=== PATIENT | female | born 1990 | race Caucasian/White ===

== ENCOUNTER → 2021-10-31 | Outpatient (CLI) | payer OTHER, BC | END | disposition home or self-care (01) | LOC: NPLAB 13:19 | PROVIDERS: ATTEND Nurse Practitioner Family | DX: Z11.52 Encounter for screening for COVID-19 (principal); Z20.822 Contact with and (suspected) exposure to COVID-19 | CPT/HCPCS: 87633 ==

== ENCOUNTER → 2022-11-16 | Outpatient (CLI) | payer OTHER, BC ==
[2022-11-16 10:20] LABS: BASOPHIL # 0.1 10^3/uL (0.0-0.1); BASOPHIL % 0.9 % (0.0-0.2); EOSINOPHIL # 0.1 10^3/uL (0.0-0.2); EOSINOPHIL % 2.2 % (0.0-5.0); LYMPHOCYTES # 1.81 10^3/uL1 (1.0-4.8); LYMPHOCYTES % 28.4 % (24.0-44.0); MEAN CORP HGB 28.7 pg (26-34); MONOCYTES # 0.6 10^3/uL (0.3-0.8); MONOCYTES % 8.6 % (5.0-12.0); NEUTROPHIL # 3.8 10^3/uL (1.8-7.7); NEUTROPHILS % 59.9 % (41.0-85.0); PLATELET COUNT 349 10^3/uL (150-400); RED CELL DISTRIBUTION WIDTH 13.7 % (11.5-14.5)
[2022-11-16 10:36] LABS: CARBON DIOXIDE 28.5 mmol/L (20.0-32)
== END | disposition home or self-care (01) ==
LOC: NPLAB 09:31
PROVIDERS: ATTEND Nurse Practitioner Adult Health
DX: I10 Essential (primary) hypertension (principal); D68.9 Coagulation defect, unspecified; E66.01 Morbid (severe) obesity due to excess calories; F43.23 Adjustment disorder with mixed anxiety and depressed mood
CPT/HCPCS: 36415; 80053; 80061; 84439; 84443; 85025

== ENCOUNTER → 2024-11-14 | Outpatient (CLI) | payer BC | END | disposition home or self-care (01) | LOC: RAD 13:11 | PROVIDERS: ATTEND Student in an Organized Health Care Education/Training Program | DX: R07.89 Other chest pain (principal) | CPT/HCPCS: 71046 ==

== ENCOUNTER → 2025-04-01 | Outpatient (CLI) | payer BC | END | disposition home or self-care (01) | LOC: RAD 15:40 | PROVIDERS: ATTEND Student in an Organized Health Care Education/Training Program | DX: M25.561 Pain in right knee (principal) | CPT/HCPCS: 73562-RT ==

== ENCOUNTER → 2025-04-08 | Outpatient (CLI) | payer BC | END | disposition home or self-care (01) | LOC: RAD 15:27 | PROVIDERS: ATTEND Student in an Organized Health Care Education/Training Program | DX: S83.521A Sprain of posterior cruciate ligament of right knee, initial encounter (principal); M25.461 Effusion, right knee; M25.561 Pain in right knee; X58.XXXA Exposure to other specified factors, initial encounter; Y93.89 Activity, other specified; Y92.89 Other specified places as the place of occurrence of the external cause; Y99.8 Other external cause status | CPT/HCPCS: 73721 ==